=== PATIENT | male | born 1950 | race Caucasian/White ===

== ENCOUNTER 2021-07-21 20:02 | Outpatient (REF) | payer MEDICARE, SELFPAY ==
[2021-07-21 20:16] LABS: Abs Immature Grans 0.02 10^3/uL (0.0-0.06); Absolute Basophil Count 0.13 10^3/uL (0.0-0.2); Absolute Eosinophil Count 0.22 10^3/uL (0.0-0.7); Absolute Lymphocyte Count 1.73 10^3/uL (1.2-3.4); Absolute Monocyte Count 0.82 10^3/uL (0.1-0.8); Absolute Neutrophil Count 2.31 10^3/uL (1.2-6.7); Basophils % 2.5; Eosinophils % 4.2; HCT 34.3 % (40.0-50.0); HGB 11.6 g/dL (13.5-17.5); Immature Grans % 0.4; Lymphocytes % 33.1; MCH 27.8 pg (27.0-33.0); MCHC 33.8 % (32.0-36.0); MCV 82 fL (80-95); MPV 9.5 fL (8.0-11.0); Monocytes % 15.7; Neutrophils % 44.1; Platelet Count 439 10^3/uL (130-400); RBC 4.17 10^6/uL (4.36-5.78); RDW 15.4 % (11.8-14.1); RDW-SD 45.8 fL; WBC 5.23 10^3/uL (4.4-10.8)
[2021-07-21 20:25] LABS: ALT 18 U/L (16-63); AST 15 U/L (15-37); Albumin 3.4 g/dL (3.4-5.0); Alkaline Phosphatase 62 U/L (46-116); Anion Gap 2.9 mmol/L (3-11); BUN 8 mg/dL (7-18); Bilirubin, Total 0.8 mg/dL (0.2-1.0); CO2 31.1 mmol/L (21.0-32.0); CREATININE 0.6 mg/dL (0.70-1.30); Calcium 8.7 mg/dL (8.5-10.1); Chloride 90 mmol/L (98-107); Glucose 79 mg/dL (74-106); Total Protein 6.7 g/dL (6.4-8.2)
[2021-07-21 20:39] LABS: Sodium 124 mmol/L (136-145)
[2021-07-21 21:16] LABS: Folate 12.3 ng/mL (8.6-20.0); Vitamin B12 308 pg/mL (193-986)
== END 2021-07-21 20:03 | disposition home or self-care (01) ==
LOC: NCHCN 20:02
PROVIDERS: PCP Internal Medicine; Visit Provider Nurse Practitioner Family
DX: R60.0 Localized edema (principal); F10.10 Alcohol abuse, uncomplicated; J44.9 Chronic obstructive pulmonary disease, unspecified
CPT/HCPCS: 80053; 82607; 82746; 85025